=== PATIENT | female | born 1985 | race Caucasian/White ===

== ENCOUNTER 2021-05-16 00:57 | Emergency (ER) | payer BC ==
[~2021-05-16] VITALS: Ht 162.6 cm; Wt 78.5 kg
[2021-05-16] MEDS ORDERED: ONDANSETRON HCL INJ 2MG/ML 2ML 2 MG/ML VIAL IV STA (01:38)
[2021-05-16] MEDS ORDERED: KETOROLAC TROMETHAMINE 30 MG/ML VIAL IV ONE (01:45)
[2021-05-16] MEDS ORDERED: SODIUM CHLORIDE 0.9% 1000ML 1,000 ML IV SCH (01:45)
[2021-05-16] MEDS ORDERED: SODIUM CHLORIDE 0.9% 50ML 50 ML ONE (02:04)
[2021-05-16] MEDS ORDERED: IOPAMIDOL 370 MG/ML 200 ML INFUS..BTL INJ ONE (02:04)
[2021-05-16] MEDS ORDERED: IBUPROFEN600 MG PO (02:41)
[2021-05-16] MEDS ORDERED: CEPHALEXIN500 MG PO (02:41)
[2021-05-16] MEDS ORDERED: ONDANSETRON ODT4 MG PO (02:41)
[2021-05-16] MEDS ORDERED: FLOMAX0.4 MG PO (02:41)
[2021-05-16] MEDS ORDERED: ULTRAM50 MG PO (02:41)
[2021-05-16] MEDS ORDERED: CEFTRIAXONE 1 GM VIAL ONE (02:42)
[2021-05-16] MEDS ORDERED: CEFTRIAXONE 500 MG VIAL IV ONE (02:45)
[2021-05-16] MEDS ORDERED: CEFTRIAXONE 1 GM in SODIUM CHLORIDE 0.9% 50ML 50 ML IV ONE (03:00)
== END 2021-05-16 03:20 | disposition home or self-care (01) ==
LOC: FSED 01:30
DX: M54.5 Low back pain (principal); N39.0 Urinary tract infection, site not specified; N20.0 Calculus of kidney; R16.1 Splenomegaly, not elsewhere classified
CPT/HCPCS: 74177; 80053; 81003; 85025; 99284; J0696; J1885; J2405; J7030; Q9967

== ENCOUNTER 2021-12-11 19:10 | Emergency (ER) | payer BC, OTHER ==
[~2021-12-11] VITALS: Ht 162.6 cm; Wt 78.5 kg
[~2021-12-11 19:10] MED LIST: CEPHALEXIN500 MG PO; FLOMAX0.4 MG PO; IBUPROFEN600 MG PO; ONDANSETRON ODT4 MG PO; ULTRAM50 MG PO
[2021-12-11] MEDS ORDERED: LORAZEPAM 0.5 MG TAB PO ONE (20:45)
[2021-12-11] MEDS ORDERED: LORAZEPAM 0.5 MG TAB ONE (20:56)
[2021-12-11] MEDS ORDERED: HYDROXYZINE HCL25 MG PO (21:24)
[2021-12-11 21:38] VITALS: BP 127/86
== END 2021-12-11 21:37 | disposition home or self-care (01) ==
LOC: FSED 19:28
DX: R07.89 Other chest pain (principal); F43.0 Acute stress reaction; D64.9 Anemia, unspecified
CPT/HCPCS: 93005; 99282